=== PATIENT | female | born 1980 | race Caucasian/White ===

== ENCOUNTER 2018-09-09 12:51 | Emergency (ER) | payer MEDICAID, OTHER ==
--- NOTE | 2018-09-09 13:56 | EDPHY ---
H & P Time Seen by Provider: 09/09/18 13:53 HPI/ROS: Chief complaint. Abdominal pain HPI. 38-year-old female with 3 day history of right low back pain. This is not uncommon for her but it is a little bit more painful than usual. She now has right lower quadrant pain for 1 day. Nausea. Hurts to walk and move. No urinary symptoms. No fever. No vomiting or diarrhea. No similar symptoms. Previous ovarian cyst with . No previous abdominal surgery ROS 10 systems were reviewed and negative with the exception of the elements mentioned in the history of present illness Past Medical/Surgical History: Hypothyroid, IBS Social History: Life partner. Nonsmoker, no alcohol Smoking Status: Never smoked Physical Exam: General Appearance: Alert pleasant well-developed female mild distress vital signs are stable Eyes: Pupils equal and round no pallor or injection. ENT, Mouth: Mucous membranes are moist. Respiratory: There are no retractions, lungs are clear to auscultation. Cardiovascular: Regular rate and rhythm. Gastrointestinal: Abdomen is soft with tenderness in the right neck adnexa and right lower quadrant. This pain is slightly below McBurney's point. No masses. Normal bowel sounds Neurological: Awake and alert, sensory and motor exams grossly normal. Skin: Warm and dry, no rashes. Musculoskeletal: Neck is supple nontender. Tender in the lower right lumbar area with palpation Extremities symmetrical, full range of motion. Psychiatric: Patient is oriented X 3, there is no agitation. Constitutional: Initial Vital Signs Temperature (C) 36.6 C 09/09/18 12:54 Heart Rate 83 09/09/18 12:54 Respiratory Rate 16 09/09/18 12:54 Blood Pressure 94/74 L 09/09/18 12:54 O2 Sat (%) 99 09/09/18 12:54 O2 Delivery Mode Room Air Allergies/Adverse Reactions: No Known Allergies Allergy (Verified 09/09/18 12:53) Home Medications: Medication Instructions Recorded Cephalexin [Keflex (*)] 500 mg PO TID #21 cap 09/09/18 Naltrexone 09/09/18 Vitamin D2 09/09/18 Medical Decision Making - Diagnostics Imaging Results: Imaging Impressions Abdomen Ultrasound 09/09/18 14:12 Impression: 1. Nonvisualization appendix. Results called to Dr. Fong at 4:00 PM. Pelvic/Renal Ultrasound 09/09/18 14:12 Impression: Negative ultrasound pelvis. Results called to Dr. Hermelindo Fong at 4:00 PM Ultrasound shows a small right ovarian cyst. Reviewed by me and discussed with Dr. Guillory. Nonvisualization of the appendix Procedures: Old records are reviewed IV normal saline ED Course/Re-evaluation: Re-evaluation 4:15 p.m.. Patient and I discussed laboratory and imaging evaluation. We discussed treatment plan including criteria for return importance follow-up further evaluation. She expresses understanding and agreement Patient is reexamined by me at 4:15 p.m.. Her tenderness and discomfort is in the right adnexa and really not at McBurney's point Differential Diagnosis: I considered ectopic , urinary tract infection, ovarian cyst, appendicitis - Data Points Laboratory Results: Laboratory Results 09/09/18 14:00 09/09/18 14:00 09/09/18 09/09/18 09/09/18 14:00 14:00 14:00 WBC 8.89 10^3/uL 10^3/uL (3.80-9.50) RBC 4.48 10^6/uL 10^6/uL (4.18-5.33) Hgb 13.7 g/dL g/dL (12.6-16.3) Hct 41.1 % % (38.0-47.0) MCV 91.7 fL fL (81.5-99.8) MCH 30.6 pg pg (27.9-34.1) MCHC 33.3 g/dL g/dL (32.4-36.7) RDW 12.1 % % (11.5-15.2) Plt Count 255 10^3/uL 10^3/uL (150-400) MPV 11.8 fL H fL (8.7-11.7) Neut % (Auto) 63.8 % % (39.3-74.2) Lymph % (Auto) 27.8 % % (15.0-45.0) [place] % (Auto) 6.3 % % (4.5-13.0) Eos % (Auto) 1.6 % % (0.6-7.6) Baso % (Auto) 0.4 % % (0.3-1.7) Nucleat RBC Rel Count 0.0 % % (0.0-0.2) Absolute Neuts (auto) 5.67 10^3/uL 10^3/uL (1.70-6.50) Absolute Lymphs (auto) 2.47 10^3/uL 10^3/uL (1.00-3.00) Absolute Monos (auto) 0.56 10^3/uL 10^3/uL (0.30-0.80) Absolute Eos (auto) 0.14 10^3/uL 10^3/uL (0.03-0.40) Absolute Basos (auto) 0.04 10^3/uL 10^3/uL (0.02-0.10) Absolute Nucleated RBC 0.00 10^3/uL 10^3/uL (0-0.01) Immature Gran % 0.1 % % (0.0-1.1) Immature Gran # 0.01 10^3/uL 10^3/uL (0.00-0.10) Sodium 137 mEq/L mEq/L (135-145) Potassium 4.1 mEq/L mEq/L (3.5-5.2) Chloride 105 mEq/L mEq/L (97-110) Carbon Dioxide 24 mEq/l mEq/l (22-31) Anion Gap 8 mEq/L mEq/L (6-14) BUN 19 mg/dL mg/dL (7-23) Creatinine 0.8 mg/dL mg/dL (0.6-1.0) Estimated GFR > 60 Glucose 88 mg/dL mg/dL (70-100) Calcium 9.2 mg/dL mg/dL (8.5-10.4) Beta HCG, Qual NEGATIVE Urine Color Urine Appearance Urine pH Ur Specific [place] Urine Protein Urine Ketones Urine Blood Urine Nitrate Urine Bilirubin Urine Urobilinogen Ur Leukocyte Esterase Urine RBC Urine WBC Ur Epithelial Cells Urine Bacteria Urine Glucose 09/09/18 13:45 WBC RBC Hgb Hct MCV MCH MCHC RDW Plt Count MPV Neut % (Auto) Lymph % (Auto) [place] % (Auto) Eos % (Auto) Baso % (Auto) Nucleat RBC Rel Count Absolute Neuts (auto) Absolute Lymphs (auto) Absolute Monos (auto) Absolute Eos (auto) Absolute Basos (auto) Absolute Nucleated RBC Immature Gran % Immature Gran # Sodium Potassium Chloride Carbon Dioxide Anion Gap BUN Creatinine Estimated GFR Glucose Calcium Beta HCG, Qual Urine Color PALE YELLOW Urine Appearance CLEAR Urine pH 7.0 (5.0-7.5) Ur Specific [place] 1.003 (1.002-1.030) Urine Protein NEGATIVE (NEGATIVE) Urine Ketones NEGATIVE (NEGATIVE) Urine Blood NEGATIVE (NEGATIVE) Urine Nitrate NEGATIVE (NEGATIVE) Urine Bilirubin NEGATIVE (NEGATIVE) Urine Urobilinogen NEGATIVE EU EU (0.2-1.0) Ur Leukocyte Esterase 2+ H (NEGATIVE) Urine RBC NONE SEEN /hpf /hpf (0-3) Urine WBC 3-5 /hpf H /hpf (0-3) Ur Epithelial Cells TRACE /lpf /lpf (NONE-1+) Urine Bacteria 1+ /hpf H /hpf (NONE SEEN) Urine Glucose NEGATIVE (NEGATIVE) Departure - Departure Disposition: Home, Routine, Self-Care Clinical Impression: Ovarian cyst Qualifiers: Laterality: right Qualified Code(s): N83.201 - Unspecified ovarian cyst, right side Urinary tract infection Qualifiers: Urinary tract infection type: site unspecified Hematuria presence: without hematuria Qualified Code(s): N39.0 - Urinary tract infection, site not specified Condition: Good Instructions: Ovarian Cyst (ED) Additional Instructions: Ibuprofen 600 mg every 6 hr for discomfort Return for worsening pain, fever, vomiting Recheck in 1 day if not improving Follow-up with gynecology for repeat ultrasound after 1 menstrual cycle Referrals: Maryellen Pollard MD [Medical Doctor] - As per Instructions Sirisha Mcnair MD [Primary Care Provider] - 1 day, if not improved Prescriptions: Cephalexin [Keflex (*)] 500 mg PO TID #21 cap
[2018-09-09 14:23] LABS: PLATELET COUNT 255 10^3/uL (150-400)
[2018-09-09 16:45] VITALS: BP 125/78
== END 2018-09-09 16:45 | disposition home or self-care (01) ==
DX: N83.291 Other ovarian cyst, right side (principal); N39.0 Urinary tract infection, site not specified